=== PATIENT | male | born 1955 | race Caucasian/White ===

== ENCOUNTER 2018-09-07 09:33 | Emergency (ER) | payer BC ==
[~2018-09-07] VITALS: Ht 177.8 cm; Wt 76.2 kg
[2018-09-07 09:37] VITALS: BP 123/82
[2018-09-07] MEDS ORDERED: DIPH,PERTUSS(ACELL),TET VAC/PF 0.5 ML IM-VACC ONE ×2 (10:13→10:30)
[2018-09-07] MEDS ORDERED: LIDOCAINE-MPF 1%, 5ML ONE (10:14)
[2018-09-07] MEDS ORDERED: LIDOCAINE-MPF 1%, 5ML INFIL ONE (10:30)
== END 2018-09-07 11:08 | disposition home or self-care (01) ==
LOC: ED 10:09
DX: S01.511A Laceration without foreign body of lip, initial encounter (principal); X58.XXXA Exposure to other specified factors, initial encounter; Y93.39 Activity, other involving climbing, rappelling and jumping off; Y92.009 Unspecified place in unspecified non-institutional (private) residence as the place of occurrence of the external cause; Y99.8 Other external cause status
CPT/HCPCS: 12011; 70486; 90471; 90715